=== PATIENT | male | born 1975 | race Caucasian/White ===

== ENCOUNTER 2020-04-04 07:56 | Day surgery (SDC) | payer OTHER ==
--- OUTSIDE RECORDS SUMMARY | 2020-04-04 08:21 | XMS REPORT | Continuity of Care Document ---
:1975 Author Organization [facility] t Address [address] [place] [address] Care Team Providers Name Role Phone Unavailable Unavailable Unavailable Payers Payer Name Policy Type Policy Number Effective Date Expiration Date S ource Problems This patient has no known problems. Allergies, Adverse Reactions, Alerts Allergy Allergy Status Severity Reaction(s) Onset Inactive Treating Comm ents Source Name Type Date Date Clinician No Known DA Active U [facility] 2-[facility] 00:00: [address] Medications This patient has no known medications. Procedures This patient has no known procedures. Results Test Description Test Time Test Comments Results Result Comments Source HGB HCT 2018-09-27 12:22:00 Test Item Value Reference Range Interpretation Comme nts HEMOGLOBIN (test code = HGB) 14.3 G/DL 12.4-16.7 HEMATOCRIT (test code = HCT) 42.0 % 35.9-49.5 GLUCOSE BEDSIDE [id number] 12:02:00 Test Item Value Reference Range Interpretation Comments GLUCOSE BEDSIDE TESTING (test code 108 MG/DL 60-99 H = GLUBED) BASIC METABOLIC [id number] 05:52:00 Test Item Value Reference Range Interpretation Comments SODIUM (test code = 138 MMOL/L 137-145 N NA) POTASSIUM (test code = 4.0 MMOL/L 3.5-5.1 N K) CHLORIDE (test code = 99 MMOL/L 98-107 N CL) CARBON DIOXIDE (test 29 MMOL/L 22-30 N code = CO2) GLUCOSE (test code = 118 MG/DL 74-106 H GLU) BLOOD UREA NITROGEN 19 MG/DL 9-20 N (test code = BUN) GLOMERULAR FILTRATION > 60 Report ing units: RATE (test code = GFR) ml/mi n/1.73 m2 (Modified MDRD Formula)Referen ce Range: > or = 6 0 ml/min/1.73 m2 CREATININE (test code 1.20 MG/DL 0.66-1.25 N = CREAT) CALCIUM (test code = 9.3 MG/DL 8.4-10.2 N CA) LIPID PROFILE (CORONARY RISK)2018-09-27 05:52:00 Test Item Value Reference Range Interpretation Comments TRIGLYCERIDES (test 157 MG/DL TRIGLYCE RIDES code = TRIG) REFERENCE RANGE:Normal: < 150 mg/dLBorderline High: 150-199 mg/dLHi gh: 200-499 mg/dLVe ry High: >=500 mg/ dL CHOLESTEROL (test code 155 MG/DL <200 = CHOL) HDL CHOLESTEROL (test 78 MG/DL 40-59 H code = HDL) LIPOPROTEIN LDL (test 68 MG/DL 0-99 N code = LDL) OPTIMAL........ .<100 mg/dLNEAR OPTIMAL/ABOVE OPTIMAL........ .100-12 9 mg/dL BORDERLINE HIGH.........13 0-159 mg/dL HIGH.........16 0-189 mg/dL VERY HIGH...... ...>/= 190 mg/dL [id number] 05:52:00 Test Item Value Reference Range Interpretation Comments MAGNESIUM (test code = MAG) 2.4 MG/DL 1.6-2.3 H BASIC METABOLIC [id number] 05:42:00 Test Item Value Reference Range Interpretation Comments SODIUM (test code = 138 MMOL/L 137-145 N NA) POTASSIUM (test code = 4.0 MMOL/L 3.5-5.1 N K) CHLORIDE (test code = 99 MMOL/L 98-107 N CL) CARBON DIOXIDE (test 29 MMOL/L 22-30 N code = CO2) GLUCOSE (test code = 118 MG/DL 74-106 H GLU) BLOOD UREA NITROGEN 19 MG/DL 9-20 N (test code = BUN) GLOMERULAR FILTRATION > 60 Report ing units: RATE (test code = GFR) ml/mi n/1.73 m2 (Modified MDRD Formula)Referen ce Range: > or = 6 0 ml/min/1.73 m2 CREATININE (test code 1.20 MG/DL 0.66-1.25 N = CREAT) CALCIUM (test code = 9.3 MG/DL 8.4-10.2 N CA) LIPID PROFILE (CORONARY RISK)2018-09-27 05:42:00 Test Item Value Reference Range Interpretation Comments TRIGLYCERIDES (test 157 MG/DL TRIGLYCE RIDES code = TRIG) REFERENCE RANGE:Normal: < 150 mg/dLBorderline High: 150-199 mg/dLHi gh: 200-499 mg/dLVe ry High: >=500 mg/ dL CHOLESTEROL (test code 155 MG/DL <200 = CHOL) HDL CHOLESTEROL (test 78 MG/DL 40-59 H code = HDL) LIPOPROTEIN LDL (test MG/DL 0-99 code = LDL) [id number] 05:42:00 Test Item Value Reference Range Interpretation Comments MAGNESIUM (test code = MAG) 2.4 MG/DL 1.6-2.3 H PROTHROMBIN [id number] 05:39:00 Test Item Value Reference Range Interpretation Comments PROTHROMBIN TIME 10.1 SECONDS 9.6-11.6 N PATIENT (test code = PTP) INTERNATIONAL NORMAL 1.0 0.8-1.1 N The INR is to be RATIO (test code = used only for INR) monitoring oral anticoagulantth erap y. INDICATION I NR VALUE ---- ---- ---- -------1. Prophylaxis, de ep venous thrombos is, including hig h risk surgery. 2.0 - 3.0 2. Prophylaxis, de ep venous thrombos is, hip surgery, treatment for d eep venous thrombosis or pulmonary prevention of systemic emboli sm in patients wit h valvular heart disease, atrial fibrillation, tissue heart va lve, or acute myocar dial infarction. 2.0 - 3 .0 3. Mechanical prosthesis hear t valves, recurrent syste semaj embolism. 3.0 - 4.5 Comments to Ammunition Specialist: NURSE TO TAKE TO LABPTT [id number] 05:39:00 Test Item Value Reference Range Interpretation Comments PTT ACTIVATED (test code = APTT) 26.7 SECONDS 22.0-33.0 N Comments to Ammunition Specialist: [facility]O [id number] 05:23:00 Test Item Value Reference Range Interpretation Comments WHITE BLOOD CELL (test code = 7.3 K/MM3 3.8-9.8 N WBC) RED BLOOD CELL (test code = 5.26 M/MM3 3.95-5.67 N RBC) HEMOGLOBIN (test code = HGB) 16.3 G/DL 12.4-16.7 N HEMATOCRIT (test code = HCT) 48.2 % 35.9-49.5 N MEAN CELL VOLUME (test code = 92 fL 81.7-96.1 N MCV) MEAN CELL HGB (test code = MCH) 31.0 pg 27.6-33.2 N MEAN CELL HGB CONCETRATION 33.8 % 32.9-35.5 N (test code = MCHC) RED CELL DISTRIBUTION WIDTH 13.0 % 12.1-15.2 N (test code = RDW) PLATELET COUNT (test code = 227 K/MM3 129-368 N PLT) MEAN PLATELET VOLUME (test code 9.9 fl 7.4-10.4 N = MPV) NEUTROPHIL % (test code = NT%) 55.4 % 43-75 N IMMATURE GRANULOCYTE % (test 0.1 % 0.0-2.0 N code = IG%) LYMPHOCYTE % (test code = LY%) 26.8 % 14-44 N MONOCYTE % (test code = MO%) 12.9 % 4-13 N EOSINOPHIL % (test code = EO%) 3.7 % 0-6 N BASOPHIL % (test code = BA%) 1.1 % 0-2 N NUCLEATED RBC % (test code = 0.0 % 0-1.0 N NRBC%) NEUTROPHIL # (test code = NT#) 4.0 K/mm3 2.0-7.6 N IMMATURE GRANULOCYTE # (test 0.01 x10 3/uL 0-0.03 N code = IG#) LYMPHOCYTE # (test code = LY#) 2.0 K/mm3 1.0-3.8 N MONOCYTE # (test code = MO#) 0.94 K/mm3 0.1-0.8 H EOSINOPHIL # (test code = EO#) 0.3 K/mm3 0.0-0.2 H BASOPHIL # (test code = BA#) 0.08 K/mm3 0.0-0.2 N NUCLEATED RBC # (test code = 0.0 K/mm3 0.0-0.1 N NRBC#)
[2020-04-04] MEDS ORDERED: NA CHLORIDE 0.9% 2,000 ML ONE (08:30)
[2020-04-04] MEDS ORDERED: Ringers Lactate 1,000 ML IV ONE ×2 (08:54→11:10)
--- NOTE | 2020-04-04 09:17 | P.HP ---
Date of Service: 04/04/20 PC: This 44-year-old male presents for elective laparoscopic cholecystectomy with cholangiogram. HPC: Patient is been expanding increasing bouts of right upper quadrant abdominal pain, radiating into his back. This started about a year ago, used to have 1 every couple months down the becoming more frequent lasting longer than causing more pain. PMH: Negative PSHx: NAD SOC: No known allergies SYS REVIEW: No cough, wheeze, shortness of breath. No chest pain or palpitations. No urinary complaints. Good exercise tolerance O/E awake alert vital signs are stable HEENT: Within normal limits Chest: Air entry equal bilaterally ABD: Mild right upper quadrant tenderness LOCO: Intact DATA: Has documented cholecystitis IMPRESSION: Cholecystitis, biliary colic PLAN: I will take him to the operating room for laparoscopic possible open cholecystectomy with cholangiogram. The risks of this procedure have been discussed. The possibility of bleeding, infection, injury to bile ducts blood vessels intestines has been described. The possible need for an open and/or further surgeries and procedures was discussed. He understands and wants us to proceed.
[2020-04-04] MEDS ORDERED: CEFOXITIN/SWI 1gm 1 GM/10 ML SYR ONE (09:19)
[2020-04-04] MEDS ORDERED: LIDOCAINE 2% MPF 5 ML VIAL ONE (09:42)
[2020-04-04] MEDS ORDERED: FENTANYL CITR 100 MCG/2 ML ONE ×2 (09:42→10:35)
[2020-04-04] MEDS ORDERED: dexAMETHasone 10 MG/ML VIAL ONE (09:42)
[2020-04-04] MEDS ORDERED: KETOROLAC 30 MG/ML INJ ONE (09:42)
[2020-04-04] MEDS ORDERED: MIDAZOLAM HCL 2 MG/2 ML INJ ONE (09:42)
[2020-04-04] MEDS ORDERED: propofoL 200 MG/20 ML VIAL IV ONE (09:42)
[2020-04-04] MEDS ORDERED: ROCURONIUM 50 MG/5 ML VIAL IV ONE ×2 (09:42→10:34)
[2020-04-04] MEDS ORDERED: ONDANSETRON 4 MG/2 ML VIAL ONE ×2 (09:43→11:10)
[2020-04-04] MEDS ORDERED: NS 0.9% VIAL 20 ML ONE (10:23)
[2020-04-04] MEDS ORDERED: Phenylephrine HCl 10 MG/ML 1 ML VIAL ONE (10:23)
--- NOTE | 2020-04-04 10:47 | P.OP ---
Preoperative diagnosis: Chronic cholecystitis with biliary colic Postoperative diagnosis: The same Primary procedure: Laparoscopic cholecystectomy Secondary procedure: Cholangiogram Other procedure(s): Lysis of extensive intra-abdominal adhesions Anesthesia: General Estimated blood loss: Less than 20 cc Specimen: 1 gallbladder and content Operative Technique: The patient was brought to the operating room placed supine on the table. After the induction of adequate general endotracheal anesthesia, the area of the abdomen is prepped with a DuraPrep solution, and draped in the usual aseptic manner. A subumbilical incision was made. This brought down through the skin and subcutaneous tissue. The Visiport was used to enter the peritoneal cavity and create a pneumoperitoneum to approximately 12 mm of mercury. Under direct vision a 5 mm trocar was placed in the upper midline, and 2 other 5 mm trocars on the right lateral side. The patient was then elevated and rolled towards the cold roll operator's side. We could see[a marked amount of adhesions of the omentum from the hepatic ligament out laterally to just around the splenic flexure. These were adherent to the anterior abdominal wall. These adhesions were gently taken down using blunt sharp dissection. At this point we could finally visualize a distended and mildly inflamed gallbladder.]. A grasper was placed on the fundus of the gallbladder. Another 1 was placed down by Victoriano's pouch. Applying lateral traction we were able to dissect and expose the cystic duct and artery. Having obtained the critical view, the artery was dealt with 1st. It was clipped and divided in the usual manner. A clip was then placed between the gallbladder and the cystic duct. An opening was made into the cystic duct. We attempted then to pass the cholangiocath into the cystic duct. Having done so, we obtained a normal intraoperative cholangiogram with good flow contrast material into the duodenum. No filling defects were noted. The catheter was gently withdrawn. Clips were now placed on the distal portion of the cystic duct. The cystic duct was then divided. The gallbladder was now dissected free from the liver bed, placed into an Endo-Catch, and brought out through the umbilical trocar site. The gallbladder fossa was inspected to ensure adequate hemostasis. It was irrigated with a saline solution and the irrigant aspirated from the peritoneal cavity. 0.25% Marcaine was aerosolized into the right upper quadrant and the gallbladder fossa. The umbilical trocar site was now approxim ated with an Endo Close and an absorbable sutures. It should be noted the patient does have a umbilical hernial defect at this time. We did place an a heavy absorbable suture, but we will advise the patient about the risk of recurrence. The pneumoperitoneum was then collapsed, the suture tied, and natan applied to the skin. A further 0.25% Marcaine was injected around are incision sites. At the end of the procedure the patient was in a stable condition when sent to the recovery room. Needle sponge instrument count were correct. 1 specimen was sent for histopathology. Complications: None Transferred to: Recovery Room Condition: Good
[2020-04-04] MEDS ORDERED: GLYCOPYRROLATE 0.2 MG/ML SYR ONE ×2 (10:50)
[2020-04-04] MEDS ORDERED: NEOSTIGMINE 1 MG/ML -5 ML ONE (10:52)
[2020-04-04] MEDS: HYDROMORPHONE HCL 1 MG/ML INJ ONE ×2 (10:58→11:10)
[2020-04-04] MEDS ORDERED: HYDROMORPHONE HCL 1 MG/ML INJ ONE (11:52)
[2020-04-04] MEDS ORDERED: HYDROCODONE/APAP 10/325 TAB ONE (12:42)
[2020-04-04 13:59] VITALS: BP 113/68; TEMP 97; O2SAT 94
--- NOTE | 2020-04-04 15:23 | RAD REPORT ---
EXAM DESCRIPTION: RADCholangiogram Oper-Xray Or04/04/2020 3:16 pm CLINICAL HISTORY: Abdominal pain FINDINGS: The examination was performed by Dr. Ng. The cystic duct was cannulated and contrast administered. Fluoroscopy time 0.3 minutes. Five fluoroscopic spot images obtained Contrast flowed into the duodenum. The biliary tree is normal caliber without a filling defect seen. Portion of the distal common bile duct was not opacified
== END 2020-04-04 13:30 | disposition home or self-care (01) ==
LOC: OR 07:56
PROVIDERS: ATTEND Surgery
PROC: BF13YZZ Fluoroscopy of Gallbladder and Bile Ducts using Other Contrast (ICD-10-PCS; 2020-04-04)
PROC: 0FT44ZZ Resection of Gallbladder, Percutaneous Endoscopic Approach (ICD-10-PCS; principal; 2020-04-04 09:30)
DX: K81.1 Chronic cholecystitis (principal); K66.0 Peritoneal adhesions (postprocedural) (postinfection); K42.9 Umbilical hernia without obstruction or gangrene; Z20.828 Contact with and (suspected) exposure to other viral communicable diseases
CPT/HCPCS: 93005; 88304; 74300; 47563; U0002; J2704; J2370; J2250; J3010 ×2; J1100; J1170 ×2; J2710; J7120 ×2; J7030; J2405 ×2